=== PATIENT | male | born 1940 | race Caucasian/White ===

== ENCOUNTER 2017-03-18 09:41 | Emergency (ER) | payer MEDICARE, BC ==
--- NOTE | 2017-03-18 10:38 | CR ---
Chest 1V Frontal HISTORY: sob COMPARISON: 01/11/2013 FINDINGS: The patient is mildly rotated to the right. Lungs appear clear and normally aerated. Cardiomediastina l silhouette is within normal limits. Atherosclerotic aorta is redemonstrated. No vascular redistribu tion or pleural fluid can be seen. Mild degenerative changes can be seen along the thoracic spine. IMPRESSION: No acute chest abnormality or significant interval change compared with 01/11/2013.
[2017-03-18] MEDS ORDERED: Nitroglycerin 0.4 MG Tab.SL SL ONE (10:49)
[2017-03-18] MEDS ORDERED: Aspirin 81 MG Tab.Chew PO ONE (10:49)
[2017-03-18] MEDS ORDERED: Sodium Chloride 0.9% 10 ML Syringe FLUSH PRN (11:29)
--- NOTE | 2017-03-18 11:35 | EDM.PDOC ---
ED HPI GENERAL MEDICAL PROBLEM - General Chief Complaint: Chest Pain Stated Complaint: CHEST PAIN/SHORTNESS OF BREATH Time Seen by Provider: 03/18/17 10:00 Source of Information: Reports: Patient History Limitations: Reports: No Limitations - History of Present Illness INITIAL COMMENTS - FREE TEXT/NARRATIVE: Pt had a stress test yesterday and he was told he had chnges on the stress test. He now feels like he has chest pressure and he is definitley more sob. He states he has not had any sharp pain. He is a nonsmoker and he notes more sob with going up and down the hill to the anand. Onset: Today, Other (pt has noted more symptoms since the stress test. ) Duration: Hour(s):, Other (pt had the stress test yesterday and he has chest pressure present today. ) Location: Reports: Chest Quality: Reports: Pressure Associated Symptoms: Reports: Chest Pain, Shortness of Breath CHEST HEAVINESS Pain Score (Numeric/FACES): 1 - Related Data Allergies Allergy/AdvReac Type Severity Reaction Status Date / Time No Known Allergies Allergy Verified 03/18/17 09:48 Home Meds: Home Meds Astaxanthin 4 mg PO DAILY 09/20/13 [History] Lactobacillus Combination No.4 [Probiotic] 1 each PO DAILY 09/20/13 [History] O'Brien-3 Fatty Acids [O'Brien-3] 1,000 mg PO DAILY 09/20/13 [History] Terazosin [Hytrin] 10 mg PO BEDTIME 09/20/13 [History] Ascorbic Acid/Cod Liver Oil [Cod Liver Oil] 350 mg PO DAILY 03/16/17 [History] Bilberry 1 cap PO DAILY 03/16/17 [History] Boswellia Dione Extract 300 mg PO DAILY 03/16/17 [History] Cholecalciferol (Vitamin D3) [Vitamin D3] 1 tab PO DAILY 03/16/17 [History] Cyanocobalamin (Vitamin B-12) [Vitamin B-12] 7,000 mcg SL DAILY 03/16/17 [ History] Multivitamin [Multivitamins] 1 cap PO DAILY 03/16/17 [History] Turmeric Root Extract [Turmeric] 300 mg PO DAILY 03/16/17 [History] Ubidecarenone [Co Q-10] 100 mg PO DAILY 03/16/17 [History] Vitamin B Complex [B Complex] 1 tab PO DAILY 03/16/17 [History] Vitamin E 400 units PO DAILY 03/16/17 [History] Past Medical History Cardiovascular History: Reports: Afib, Heart Murmur, Other (See Below) Other Cardiovascular History: history of rheumatic fever Gastrointestinal History: Reports: GERD Genitourinary History: Reports: Prostate Disorder - Infectious Disease History Infectious Disease History: Reports: Chicken Pox, Measles, Mumps, Rheumatic Fever - Past Surgical History Cardiovascular Surgical History: Reports: Cardiac Ablation GI Surgical History: Reports: Appendectomy, Hernia, Abdominal Social & Family History - Tobacco Use Smoking Status *Q: Never Smoker Years of Tobacco use: 20 Used Tobacco, but Quit: Yes Month Tobacco Last Used: one year ago Second Hand Smoke Exposure: No - Alcohol Use Days Per Week of Alcohol Use: 0 - Recreational Drug Use Recreational Drug Use: No ED ROS GENERAL - Review of Systems Review Of Systems: See Below Constitutional: Reports: No Symptoms HEENT: Reports: No Symptoms Respiratory: Reports: Shortness of Breath, Other (pt is having chest pressure and sob. he has a abnormal cardiolyte stress test. ) Cardiovascular: Reports: No Symptoms Endocrine: Reports: No Symptoms GI/Abdominal: Reports: No Symptoms : Reports: No Symptoms Musculoskeletal: Reports: No Symptoms Skin: Reports: No Symptoms ED EXAM, GENERAL - Physical Exam Exam: See Below Free Text/Narrative:: pt arrived with sob and chest pressure. He hd a stress test yesterday which showed a large inferior defect that was reversible, Exam Limited By: No Limitations General Appearance: Alert, Anxious, Mild Distress Ears: Normal TMs Nose: Normal Inspection Throat/Mouth: Normal Inspection Head: Atraumatic Neck: Normal Inspection Respiratory/Chest: No Respiratory Distress, Decreased Breath Sounds Cardiovascular: Regular Rate, Rhythm GI/Abdominal: Soft, Non-Tender (Male) Exam: Deferred Rectal (Males) Exam: Deferred Back Exam: Normal Inspection Extremities: Normal Inspection Neurological: Alert, Oriented, Normal Cognition Psychiatric: Normal Affect, Anxious Course - Vital Signs Last Recorded V/S: Last Vital Signs Temp 35.7 C 03/18/17 09:58 Pulse 63 03/18/17 09:58 Resp 12 03/18/17 11:33 BP 115/71 03/18/17 11:33 Pulse Ox 97 03/18/17 11:33 - Orders/Labs/Meds Orders: Active Orders 24 hr Category Date Time Status EKG Documentation Completion [RC] ASDIRECTED Care 03/18/17 10:09 Active Sodium Chloride 0.9% [Saline Flush] Med 03/18/17 11:29 Active 10 ml FLUSH ASDIRECTED PRN Saline Lock Insert [OM.PC] Routine Oth 03/18/17 11:29 Ordered EKG 12 Lead [EK] Routine Ther 03/18/17 10:09 Ordered Medication Orders Sodium Chloride (Saline Flush) 10 ml FLUSH ASDIRECTED PRN PRN Reason: Keep Vein Open Labs: Laboratory Tests 03/18/17 03/18/17 03/18/17 Range/Units 10:17 10:17 10:17 WBC 3.3 L (4.5-11.0) K/uL RBC 3.81 L (4.30-5.90) M/uL Hgb 12.4 (12.0-15.0) g/dL Hct 37.9 L (40.0-54.0) % MCV 100 H (80-98) fL MCH 33 H (27-31) pg MCHC 33 (32-36) % Plt Count 97 L (150-400) K/uL Neut % (Auto) 49 (36-66) % Lymph % (Auto) 34 (24-44) % Dundy % (Auto) 16 H (2-6) % Eos % (Auto) 1 L (2-4) % Baso % (Auto) 0 (0-1) % Sodium 140 (140-148) mmol/L Potassium 4.3 (3.6-5.2) mmol/L Chloride 105 (100-108) mmol/L Carbon Dioxide 28 (21-32) mmol/L Anion Gap 7.2 (5.0-14.0) mmol/L BUN 12 (7-18) mg/dL Creatinine 0.6 L (0.8-1.3) mg/dL Est Cr Clr Drug Dosing 111.53 mL/min Estimated GFR (MDRD) > 60 (>60) Glucose 98 (74-106) mg/dL Calcium 8.6 (8.5-10.1) mg/dL Total Bilirubin 1.0 (0.2-1.0) mg/dL AST 14 L (15-37) U/L ALT 22 (12-78) U/L Alkaline Phosphatase 117 H (46-116) U/L Troponin I < 0.017 (0.000-0.056) ng/mL NT-Pro-B Natriuret Pep 170 H (5-125) pg/mL Total Protein 6.9 (6.4-8.2) g/dL Albumin 3.6 (3.4-5.0) g/dL Globulin 3.3 (2.3-3.5) g/dL Albumin/Globulin Ratio 1.1 L (1.2-2.2) Meds: Medications Generic Name Dose Route Start Last Admin Trade Name Freq PRN Reason Stop Dose Admin Sodium Chloride 10 ml 03/18/17 11:29 Saline Flush FLUSH ASDIRECTED PRN Keep Vein Open Discontinued Medications Generic Name Dose Route Start Last Admin Trade Name Freq PRN Reason Stop Dose Admin Aspirin 324 mg 03/18/17 10:49 03/18/17 11:18 Aspirin PO 03/18/17 10:50 324 mg ONETIME ONE Administration Nitroglycerin 0.4 mg 03/18/17 10:49 03/18/17 11:31 Nitrostat SL 03/18/17 10:50 0.4 mg ONETIME ONE Administration - Re-Assessments/Exams Free Text/Narrative Re-Assessment/Exam: 03/18/17 11:41 pt had a abnormal cardiolyte yesterday with a large reversible defect in the inferior portion of his heart. He had a normal trop. His ekg did not show acute changes. cardiology was consulted in [place] and he agreed that he should have a cardiac cath sooner rather than later. Departure - Departure Time of Disposition: 11:44 Disposition: DC/Tfer to Acute Hospital 02 Reason for Transfer *Q: Primary PCI Indicated Condition: Fair Clinical Impression: Unstable angina Referrals: Vernon Jenkins PA-C [Primary Care Provider] - Forms: ED Department Discharge Care Plan Goals: transfer to [place] cardiology. - My Orders Last 24 Hours: My Active Orders 03/18/17 10:09 EKG Documentation Completion [RC] ASDIRECTED EKG 12 Lead [EK] Routine 03/18/17 11:29 Sodium Chloride 0.9% [Saline Flush] 10 ml FLUSH ASDIRECTED PRN Saline Lock Insert [OM.PC] Routine - Assessment/Plan Last 24 Hours: My Active Orders 03/18/17 10:09 EKG Documentation Completion [RC] ASDIRECTED EKG 12 Lead [EK] Routine 03/18/17 11:29 Sodium Chloride 0.9% [Saline Flush] 10 ml FLUSH ASDIRECTED PRN Saline Lock Insert [OM.PC] Routine
[2017-03-18] MEDS ORDERED: Sodium Chloride 0.9% 1,000 ML IV SCH (11:45)
[2017-03-18 11:55] VITALS: BP 112/71
== END 2017-03-18 12:14 ==
LOC: JP.ED 09:41
DX: I20.0 Unstable angina (principal); I48.91 Unspecified atrial fibrillation; Z79.899 Other long term (current) drug therapy; R06.02 Shortness of breath
CPT/HCPCS: 36415; 71010; 80053; 83880; 84484; 85025; 93005; 93010; 99285; A9270

== ENCOUNTER 2017-11-25 06:49 | Day surgery (SDC) | payer MEDICARE, BC ==
[~2017-11-25 06:49] MED LIST: Lactated Ringers 1,000 ML IV SCH
[2017-11-25] MEDS ORDERED: Lactated Ringers 1,000 ML IV SCH (07:30)
[2017-11-25] MEDS ORDERED: fentaNYL 100 MCG/2 ML SDV ONE (08:42)
[2017-11-25] MEDS ORDERED: Propofol 200 MG/20 ML SDV ONE ×2 (08:45→09:12)
[2017-11-25 10:49] VITALS: BP 124/73
--- NOTE | 2017-11-25 12:56 | OR ---
DATE OF PROCEDURE: 11/25/2017 PREOPERATIVE DIAGNOSIS: Diarrhea. POSTOPERATIVE DIAGNOSIS: Diarrhea. PROCEDURES: Colonoscopy to the cecum with random colon biopsies. SURGEON: Jerry Samayoa MD. ANESTHESIA: IV anesthesia with monitored anesthesia care. INDICATION: This 77-year-old white male is referred for a colonoscopy because of diarrhea. He says his last colonoscopic exam was done 5 years ago. I counseled him for the procedure, including risks and alternatives, and he gave his informed consent to proceed. DESCRIPTION OF PROCEDURE: The patient was placed in the left lateral decubitus position. IV anesthesia was administered by the Anesthesia Service. Time-out was held. A rectal exam was performed, which was unremarkable. The flexible video Olympus colonoscope was introduced through his anus, up his rectum, and out his colon all the way to the cecum. To accomplish this, we had to apply abdominal compression with the patient in both the left lateral and supine positions. The scope was then slowly withdrawn, examining the mucosa throughout. No mucosal abnormalities were noted. We did obtain random colonic biopsies throughout the entire colon. The scope was retroflexed in the rectum with the distal rectum appearing unremarkable. The scope was straightened and removed. He tolerated the procedure well. Jerry Samayoa MD /[id number] MTDD
== END 2017-11-25 10:30 | disposition home or self-care (01) ==
LOC: JP.SDS 06:49
PROVIDERS: ATTEND Surgery
DX: R19.7 Diarrhea, unspecified (principal); I25.10 Atherosclerotic heart disease of native coronary artery without angina pectoris; G47.33 Obstructive sleep apnea (adult) (pediatric)
CPT/HCPCS: 45380; J2704; J3010; J7120; 88305

== ENCOUNTER 2019-11-01 09:54 | Observation (INO) | payer MEDICARE, BC ==
--- NOTE | 2019-11-01 10:47 | EDM.PDOC ---
ED HPI GENERAL MEDICAL PROBLEM - General Chief Complaint: General Stated Complaint: JAUNDICED Time Seen by Provider: 11/01/19 10:34 Source of Information: Reports: Patient, RN Notes Reviewed History Limitations: Reports: No Limitations - History of Present Illness INITIAL COMMENTS - FREE TEXT/NARRATIVE: 79-year-old gentleman presents emergency department today complaint of shortness of breath on exertion, he states been ongoing for about 2 weeks he has had some troubles before but it was more of a nuisance but however over the last 2 weeks it has been significant to the point where he cannot walk up a flight of stairs without having to stop and rest and catch his breath. His family was concerned that he looks jaundiced he does have a cardiac history with stenting 2 years ago. No chest pain no fevers no nausea or vomiting he does admit to black tarry stools over the last 3 weeks - Related Data Allergies Allergy/AdvReac Type Severity Reaction Status Date / Time No Known Allergies Allergy Verified 11/01/19 10:16 Home Meds: Home Meds Astaxanthin 4 mg PO DAILY 09/20/13 [History] Lactobacillus Combination No.4 [Probiotic] 1 each PO DAILY 09/20/13 [History] [place]field-3 Fatty Acids [[place]akefield-3] 1,000 mg PO DAILY 09/20/13 [History] Boswellia Dione Extract 300 mg PO DAILY 03/16/17 [History] Cholecalciferol (Vitamin D3) [Vitamin D3] 1 tab PO DAILY 03/16/17 [History] Cyanocobalamin (Vitamin B-12) [Vitamin B-12] 7,000 mcg SL DAILY 03/16/17 [ History] Multivitamin [Multivitamins] 1 cap PO DAILY 03/16/17 [History] Ubidecarenone [Co Q-10] 100 mg PO DAILY 03/16/17 [History] Vitamin B Complex [B Complex] 1 tab PO DAILY 03/16/17 [History] Vitamin E 400 units PO DAILY 03/16/17 [History] Aspirin [Adult Low Dose Aspirin EC] 81 mg PO DAILY 10/14/17 [History] Clopidogrel [Plavix] 75 mg PO DAILY 10/14/17 [History] Eclectic Aspartate [Lithate] 5 mg PO DAILY 10/14/17 [History] Tamsulosin HCl [Flomax] 0.4 mg PO DAILY 10/14/17 [History] Acetylcarnitine [Acetyl l-Carnitine] 500 mg PO DAILY 11/24/17 [History] Arginine 500 mg PO DAILY 11/24/17 [History] Ashwagandha 1,000 mg PO DAILY 11/24/17 [History] Berberine Complex Or 150 mg PO DAILY 11/24/17 [History] Iodine [Kelp] 225 mg PO DAILY 11/24/17 [History] Lysine HCl [l-Lysine] 500 mg PO DAILY 11/24/17 [History] Magnesium 125 mg PO DAILY 11/24/17 [History] [place] Boronda Extract 500 mg PO DAILY 11/24/17 [History] Acetylcysteine [Cetylev] 1 tab PO DAILY 05/11/18 [History] Cod Liver Oil 350 mg PO DAILY 05/11/18 [History] Inositol/Choline/Biofla/Vitb,C [Ear Health Plus Caplet] 250 mg PO DAILY [History] Lutein/Zeaxanthin [Lutein-Zeaxanthin 20-1 mg Sfgl] 1 each PO DAILY 05/11/18 [ History] Resveratrol 1 cap PO DAILY 05/11/18 [History] Tragacanth 1 dose PO DAILY 05/11/18 [History] Milk Thistle 500 mg PO DAILY 05/17/18 [History] Ferrous Sulfate [Iron] 325 mg PO DAILY 11/01/19 [History] Past Medical History HEENT History: Reports: Cataract, Hard of Hearing, Impaired Vision Cardiovascular History: Reports: Afib, Heart Murmur, Stents, Other (See Below) Other Cardiovascular History: history of rheumatic fever Respiratory History: Reports: Sleep Apnea Gastrointestinal History: Reports: GERD Genitourinary History: Reports: Prostate Disorder Musculoskeletal History: Reports: Fracture Endocrine/Metabolic History: Reports: Hypothyroidism Hematologic History: Reports: Anticoagulation Therapy - Infectious Disease History Infectious Disease History: Reports: Chicken Pox, Measles, Mumps - Past Surgical History HEENT Surgical History: Reports: None Cardiovascular Surgical History: Reports: Cardiac Ablation, Coronary Artery Stent Respiratory Surgical History: Reports: None GI Surgical History: Reports: Appendectomy, Colonoscopy, EGD, Hernia, Abdominal Male Surgical History: Reports: Prostate Biopsy Endocrine Surgical History: Reports: None Musculoskeletal Surgical History: Reports: None Social & Family History - Caffeine Use Caffeine Use: Reports: None ED ROS GENERAL - Review of Systems Review Of Systems: See Below Constitutional: Reports: No Symptoms HEENT: Reports: No Symptoms Respiratory: Reports: Shortness of Breath. Denies: Wheezing, Cough, Sputum Cardiovascular: Reports: Dyspnea on Exertion. Denies: Chest Pain, Edema GI/Abdominal: Reports: Black Stool : Reports: No Symptoms Musculoskeletal: Reports: No Symptoms Skin: Reports: No Symptoms ED EXAM, GENERAL - Physical Exam Exam: See Below Exam Limited By: No Limitations General Appearance: Alert, WD/WN, No Apparent Distress Respiratory/Chest: No Respiratory Distress, Lungs Clear, Normal Breath Sounds, No Accessory Muscle Use, Chest Non-Tender Cardiovascular: Regular Rate, Rhythm, No Murmur GI/Abdominal: Soft, Non-Tender Extremities: Normal Inspection, No Pedal Edema Course - Vital Signs Last Recorded V/S: Last Vital Signs Temp 97.1 F 11/01/19 10:24 Pulse 63 11/01/19 11:28 Resp 20 11/01/19 11:28 BP 114/44 L 11/01/19 11:28 Pulse Ox 97 11/01/19 11:28 - Orders/Labs/Meds Orders: Active Orders 24 hr Category Date Time Status Cardiac Monitoring [RC] .As Directed Care 11/01/19 10:41 Active EKG Documentation Completion [RC] ASDIRECTED Care 11/01/19 10:42 Active FERRITIN [CHEM] Routine Lab 11/01/19 11:33 Ordered RED BLOOD CELLS LP [BBK] Stat Lab 11/01/19 11:01 Ordered TYPE AND SCREEN [BBK] Stat Lab 11/01/19 11:01 Ordered VITAMIN B12 [CHEM] Routine Lab 11/01/19 11:33 Ordered EKG 12 Lead [EK] Stat Ther 11/01/19 10:41 Ordered Labs: Laboratory Tests 11/01/19 11/01/19 11/01/19 Range/Units 10:53 10:53 10:53 WBC 5.1 (4.5-11.0) K/uL RBC 1.82 L (4.30-5.90) M/uL Hgb 5.5 L* D (12.0-15.0) g/dL Hct 19.7 L (40.0-54.0) % MCV 108 H (80-98) fL MCH 30 (27-31) pg MCHC 28 L (32-36) % Plt Count 155 (150-400) K/uL Add Manual Diff Yes Neutrophils % (Manual) 67 H (36-66) % Lymphocytes % (Manual) 14 L (24-44) % Monocytes % (Manual) 18 H (2-6) % Eosinophils % (Manual) 1 L (2-4) % Hypochromasia Marked H Poikilocytosis Marked H Anisocytosis Marked H Stomatocytes Marked H Sodium 138 L (140-148) mmol/L Potassium 4.3 (3.6-5.2) mmol/L Chloride 105 (100-108) mmol/L Carbon Dioxide 26 (21-32) mmol/L Anion Gap 11.3 (5.0-14.0) mmol/L BUN 20 H D (7-18) mg/dL Creatinine 0.8 (0.8-1.3) mg/dL Est Cr Clr Drug Dosing 79.87 mL/min Estimated GFR (MDRD) > 60 (>60) Glucose 105 (74-106) mg/dL Lactic Acid 2.4 H (0.4-2.0) mmol/L Calcium 7.8 L (8.5-10.1) mg/dL Iron (65-175) ug/dL TIBC (250-450) ug/dl % Saturation (20-55) % Total Bilirubin 0.5 (0.2-1.0) mg/dL AST 16 (15-37) U/L ALT 24 (12-78) U/L Alkaline Phosphatase 95 (46-116) U/L Troponin I < 0.017 (0.000-0.056) ng/mL NT-Pro-B Natriuret Pep 327 (5-450) pg/mL Total Protein 5.0 L (6.4-8.2) g/dL Albumin 2.7 L (3.4-5.0) g/dL Globulin 2.3 (2.3-3.5) g/dL Albumin/Globulin Ratio 1.2 (1.2-2.2) 11/01/19 Range/Units 11:33 WBC (4.5-11.0) K/uL RBC (4.30-5.90) M/uL Hgb (12.0-15.0) g/dL Hct (40.0-54.0) % MCV (80-98) fL MCH (27-31) pg MCHC (32-36) % Plt Count (150-400) K/uL Add Manual Diff Neutrophils % (Manual) (36-66) % Lymphocytes % (Manual) (24-44) % Monocytes % (Manual) (2-6) % Eosinophils % (Manual) (2-4) % Hypochromasia Poikilocytosis Anisocytosis Stomatocytes Sodium (140-148) mmol/L Potassium (3.6-5.2) mmol/L Chloride (100-108) mmol/L Carbon Dioxide (21-32) mmol/L Anion Gap (5.0-14.0) mmol/L BUN (7-18) mg/dL Creatinine (0.8-1.3) mg/dL Est Cr Clr Drug Dosing mL/min Estimated GFR (MDRD) (>60) Glucose (74-106) mg/dL Lactic Acid (0.4-2.0) mmol/L Calcium (8.5-10.1) mg/dL Iron 124 (65-175) ug/dL TIBC 321 (250-450) ug/dl % Saturation 39 (20-55) % Total Bilirubin (0.2-1.0) mg/dL AST (15-37) U/L ALT (12-78) U/L Alkaline Phosphatase (46-116) U/L Troponin I (0.000-0.056) ng/mL NT-Pro-B Natriuret Pep (5-450) pg/mL Total Protein (6.4-8.2) g/dL Albumin (3.4-5.0) g/dL Globulin (2.3-3.5) g/dL Albumin/Globulin Ratio (1.2-2.2) Departure - Departure Time of Disposition: 12:09 Disposition: Admitted As Inpatient 68 Condition: Fair Clinical Impression: Anemia, macrocytic - Discharge Information Referrals: PCP,None [Primary Care Provider] - Forms: ED Department Discharge Sepsis Event Note - Evaluation Sepsis Screening Result: No Definite Risk - Focused Exam Vital Signs: Vital Signs Temp Pulse Resp BP Pulse Ox 11/01/19 11:28 63 20 114/44 L 97 11/01/19 10:24 97.1 F 64 14 123/52 L 100 Date Exam was Performed: 11/01/19 Time Exam was Performed: 12:08 - My Orders Last 24 Hours: My Active Orders 11/01/19 10:41 Cardiac Monitoring [RC] .As Directed EKG 12 Lead [EK] Stat 11/01/19 10:42 EKG Documentation Completion [RC] ASDIRECTED 11/01/19 11:01 RED BLOOD CELLS LP [BBK] Stat TYPE AND SCREEN [BBK] Stat - Assessment/Plan Last 24 Hours: My Active Orders 11/01/19 10:41 Cardiac Monitoring [RC] .As Directed EKG 12 Lead [EK] Stat 11/01/19 10:42 EKG Documentation Completion [RC] ASDIRECTED 11/01/19 11:01 RED BLOOD CELLS LP [BBK] Stat TYPE AND SCREEN [BBK] Stat Plan: Assessment Acuity = acute Site and laterality = severe anemia Etiology = unknown Manifestations = dyspnea on exertion Location of injury = Home Lab values = hemoglobin low at 5.5 consistent macrocytic anemia lactic acid normal at 2.4 troponins negative BNP normal at 327 albumin low 2.7 consistent with microalbuminemia chest x-ray shows mild cardiomegaly EKG demonstrates a right bundle branch block no elevations of the ST segments Plan Call discussed case with hospitalist on-call at 1130 currently agreed to come and evaluate the patient in the hospital for admission 2 units of packed red blood cells have been ordered This note was dictated using [employer] voice recognition software please call with any questions on syntax or grammar.
--- NOTE | 2019-11-01 11:11 | CR ---
CHEST: 2 view CLINICAL HISTORY:SOB COMPARISON:2017 FINDINGS: Heart is mildly enlarged. Pulmonary vascular is normal. Lungs are moderately emphysematous. There is some scarring in the right lung base posteriorly which is similar to prior study. There are atherosclerotic changes in the aorta. IMPRESSION: Moderate emphysematous changes Mild cardiomegaly Scarring at the right lung base.
[2019-11-01] MEDS ORDERED: Pantoprazole 40 MG Vial IVPUSH ONE (12:57)
--- NOTE | 2019-11-01 13:09 | PCM.HP.2 ---
H&P History of Present Illness - General Date of Service: 11/01/19 Admit Problem/Dx: Admission Diagnosis/Problem Admission Diagnosis/Problem Anemia due to blood loss Source of Information: Patient, Provider History Limitations: Reports: No Limitations - History of Present Illness Initial Comments - Free Text/Narative: CC: I get so winded HPI: James presents to the emergency room today because his family was worried about the color of his skin. They thought that he looked pale. He reports that he has had about 2 to 3 weeks of progressive dyspnea with exertion and even some presyncope. He has not had any chest pain. He does not have a cough or fever. Climbing a flight of stairs causes him to have to stop and catch his breath. He describes some orthostatic type hypotension and gets lightheaded after he leans over or when he stands up. He does note that he had black tarry stools off and on for the past 3 weeks. He has not had any abdominal pain or nausea. His weight has been stable. No change in bladder habits. No skin rashes or sick contacts. No new medications. He does report lifelong difficulty with heartburn which has been more intense lately. He is under a great deal of stress trying to sell a house. Work-up in the emergency room revealed a hemoglobin of 5.5. Laboratory studies are otherwise unremarkable. He will be admitted for expedited work-up and management of anemia thought secondary to blood loss from an upper GI bleed. - Related Data Allergies/Adverse Reactions: Allergies Allergy/AdvReac Type Severity Reaction Status Date / Time No Known Allergies Allergy Verified 11/01/19 14:25 Home Medications: Home Meds Astaxanthin 4 mg PO DAILY 09/20/13 [History] Lactobacillus Combination No.4 [Probiotic] 1 each PO DAILY 09/20/13 [History] [place]-3 Fatty Acids [Weir-3] 1,000 mg PO DAILY 09/20/13 [History] [place]well[place] Dione Extract 300 mg PO DAILY 03/16/17 [History] Cholecalciferol (Vitamin D3) [Vitamin D3] 1 tab PO DAILY 03/16/17 [History] Cyanocobalamin (Vitamin B-12) [Vitamin B-12] 7,000 mcg SL DAILY 03/16/17 [ History] Multivitamin [Multivitamins] 1 cap PO DAILY 03/16/17 [History] Ubidecarenone [Co Q-10] 100 mg PO DAILY 03/16/17 [History] Vitamin B Complex [B Complex] 1 tab PO DAILY 03/16/17 [History] Vitamin E 400 units PO DAILY 03/16/17 [History] Aspirin [Adult Low Dose Aspirin EC] 81 mg PO DAILY 10/14/17 [History] Clopidogrel [Plavix] 75 mg PO DAILY 10/14/17 [History] [place] Aspartate [Lithate] 5 mg PO DAILY 10/14/17 [History] Tamsulosin HCl [Flomax] 0.4 mg PO DAILY 10/14/17 [History] Acetylcarnitine [Acetyl l-Carnitine] 500 mg PO DAILY 11/24/17 [History] Arginine 500 mg PO DAILY 11/24/17 [History] Ashwagandha 1,000 mg PO DAILY 11/24/17 [History] Berberine Complex Or 150 mg PO DAILY 11/24/17 [History] Iodine [Kelp] 225 mg PO DAILY 11/24/17 [History] Lysine HCl [l-Lysine] 500 mg PO DAILY 11/24/17 [History] Magnesium 125 mg PO DAILY 11/24/17 [History] [place] Extract 500 mg PO DAILY 11/24/17 [History] Acetylcysteine [Cetylev] 1 tab PO DAILY 05/11/18 [History] Cod Liver Oil 350 mg PO DAILY 05/11/18 [History] Inositol/Choline/Biofla/Vitb,C [Ear Health Plus Caplet] 250 mg PO DAILY [History] Lutein/Zeaxanthin [Lutein-Zeaxanthin 20-1 mg Sfgl] 1 each PO DAILY 05/11/18 [ History] Resveratrol 1 cap PO DAILY 05/11/18 [History] Tragacanth 1 dose PO DAILY 05/11/18 [History] Milk Thistle 500 mg PO DAILY 05/17/18 [History] Ferrous Sulfate [Iron] 325 mg PO DAILY 11/01/19 [History] Past Medical History HEENT History: Reports: Cataract, Hard of Hearing, Impaired Vision Cardiovascular History: Reports: Afib, Heart Murmur, Stents, Other (See Below) Other Cardiovascular History: history of rheumatic fever Respiratory History: Reports: Sleep Apnea Gastrointestinal History: Reports: GERD Genitourinary History: Reports: Prostate Disorder Musculoskeletal History: Reports: Fracture Endocrine/Metabolic History: Reports: Hypothyroidism Hematologic History: Reports: Anticoagulation Therapy - Infectious Disease History Infectious Disease History: Reports: Chicken Pox, Measles, Mumps - Past Surgical History HEENT Surgical History: Reports: None Cardiovascular Surgical History: Reports: Cardiac Ablation, Coronary Artery Stent Respiratory Surgical History: Reports: None GI Surgical History: Reports: Appendectomy, Colonoscopy, EGD, Hernia, Abdominal Male Surgical History: Reports: Prostate Biopsy Endocrine Surgical History: Reports: None Musculoskeletal Surgical History: Reports: None Social & Family History - Family History GI: Reports: GERD. Denies: GI bleed - Tobacco Use Smoking Status *Q: Never Smoker - Caffeine Use Caffeine Use: Reports: None - Alcohol Use Alcohol Use History: No - Recreational Drug Use Recreational Drug Use: No Drug Use in Last 12 Months: No H&P Review of Systems - Review of Systems: Review Of Systems: See Below Free Text/Narrative: A complete 12 point review of systems was obtained. Pertinent positives and negatives are noted in the history of present illness. All other systems were reviewed and were negative except as noted. Exam - Exam Exam: See Below - Vital Signs Vital Signs: Last Vital Signs Temp 36.2 C 11/01/19 10:24 Pulse 63 11/01/19 11:28 Resp 20 11/01/19 11:28 BP 114/44 L 11/01/19 11:28 Pulse Ox 97 11/01/19 11:28 Weight: 73.028 kg - Exam Quality Assessment: No: Supplemental Oxygen General: Alert, Oriented, Cooperative. No: Mild Distress HEENT: Conjunctiva Clear, Mucosa Moist & Herricks. No: Scleral Icterus Neck: Supple, Trachea Midline. No: Lymphadenopathy Lungs: Clear to Auscultation, Normal Respiratory Effort Cardiovascular: Regular Rate, Regular Rhythm GI/Abdominal Exam: Normal Bowel Sounds, Soft, Non-Tender, No Distention Back Exam: Normal Inspection, Full Range of Motion Extremities: No Pedal Edema. No: Increased Warmth Peripheral Pulses: 2+: Dorsalis Pedis (L), Dorsalis Pedis (R) Skin: Warm, Dry Neuro Extensive - Mental Status: Alert, Oriented x3, Nl Response to Commands Neuro Extensive - Motor, Sensory, Reflexes: No: Dysarthria, Abnormal Motor, Tremor Psychiatric: Alert, Normal Affect - Patient Data Lab Results Last 24 hrs: Laboratory Results - last 24 hr 11/01/19 11/01/19 11/01/19 Range/Units 10:53 10:53 10:53 WBC 5.1 (4.5-11.0) K/uL RBC 1.82 L (4.30-5.90) M/uL Hgb 5.5 L* D (12.0-15.0) g/dL Hct 19.7 L (40.0-54.0) % MCV 108 H (80-98) fL MCH 30 (27-31) pg MCHC 28 L (32-36) % Plt Count 155 (150-400) K/uL Add Manual Diff Yes Neutrophils % (Manual) 67 H (36-66) % Lymphocytes % (Manual) 14 L (24-44) % Monocytes % (Manual) 18 H (2-6) % Eosinophils % (Manual) 1 L (2-4) % Hypochromasia Marked H Poikilocytosis Marked H Anisocytosis Marked H Stomatocytes Marked H Sodium 138 L (140-148) mmol/L Potassium 4.3 (3.6-5.2) mmol/L Chloride 105 (100-108) mmol/L Carbon Dioxide 26 (21-32) mmol/L Anion Gap 11.3 (5.0-14.0) mmol/L BUN 20 H D (7-18) mg/dL Creatinine 0.8 (0.8-1.3) mg/dL Est Cr Clr Drug Dosing 79.87 mL/min Estimated GFR (MDRD) > 60 (>60) Glucose 105 (74-106) mg/dL Lactic Acid 2.4 H (0.4-2.0) mmol/L Calcium 7.8 L (8.5-10.1) mg/dL Iron (65-175) ug/dL TIBC (250-450) ug/dl % Saturation (20-55) % Ferritin (8-388) ng/ml Total Bilirubin 0.5 (0.2-1.0) mg/dL AST 16 (15-37) U/L ALT 24 (12-78) U/L Alkaline Phosphatase 95 (46-116) U/L Troponin I < 0.017 (0.000-0.056) ng/mL NT-Pro-B Natriuret Pep 327 (5-450) pg/mL Total Protein 5.0 L (6.4-8.2) g/dL Albumin 2.7 L (3.4-5.0) g/dL Globulin 2.3 (2.3-3.5) g/dL Albumin/Globulin Ratio 1.2 (1.2-2.2) Vitamin B12 (193-986) pg/ml Blood Type Gel Antibody Screen Crossmatch 11/01/19 11/01/19 11/01/19 Range/Units 11:01 11:33 11:33 WBC (4.5-11.0) K/uL RBC (4.30-5.90) M/uL Hgb (12.0-15.0) g/dL Hct (40.0-54.0) % MCV (80-98) fL MCH (27-31) pg MCHC (32-36) % Plt Count (150-400) K/uL Add Manual Diff Neutrophils % (Manual) (36-66) % Lymphocytes % (Manual) (24-44) % Monocytes % (Manual) (2-6) % Eosinophils % (Manual) (2-4) % Hypochromasia Poikilocytosis Anisocytosis Stomatocytes Sodium (140-148) mmol/L Potassium (3.6-5.2) mmol/L Chloride (100-108) mmol/L Carbon Dioxide (21-32) mmol/L Anion Gap (5.0-14.0) mmol/L BUN (7-18) mg/dL Creatinine (0.8-1.3) mg/dL Est Cr Clr Drug Dosing mL/min Estimated GFR (MDRD) (>60) Glucose (74-106) mg/dL Lactic Acid (0.4-2.0) mmol/L Calcium (8.5-10.1) mg/dL Iron 124 (65-175) ug/dL TIBC 321 (250-450) ug/dl % Saturation 39 (20-55) % Ferritin 28 (8-388) ng/ml Total Bilirubin (0.2-1.0) mg/dL AST (15-37) U/L ALT (12-78) U/L Alkaline Phosphatase (46-116) U/L Troponin I (0.000-0.056) ng/mL NT-Pro-B Natriuret Pep (5-450) pg/mL Total Protein (6.4-8.2) g/dL Albumin (3.4-5.0) g/dL Globulin (2.3-3.5) g/dL Albumin/Globulin Ratio (1.2-2.2) Vitamin B12 1453 H (193-986) pg/ml Blood Type B POSITIVE Gel Antibody Screen Negative Crossmatch See Detail Result Diagrams: 11/01/19 10:53 11/01/19 10:53 EKG INTERPRETATION EKG Date: 11/01/19 Rhythm: NSR Rate (Beats/Min): 77 Beatrice: RAD-Right Beatrice Deviation (RBBB) P-Wave: Present QRS: Normal ST-T: Normal QT: Normal EKG Interpretation Comments: This EKG image was personally reviewed today in the emergency room Sepsis Event Note - Evaluation Sepsis Screening Result: No Definite Risk - Focused Exam Vital Signs: Vital Signs Temp Pulse Resp BP Pulse Ox 11/01/19 11:28 63 20 114/44 L 97 11/01/19 10:24 36.2 C 64 14 123/52 L 100 Date Exam was Performed: 11/01/19 Time Exam was Performed: 15:13 *Q Meaningful Use (ADM) - VTE *Q VTE Pharmacological Contraindications *Q: Risk of Bleeding (suspect upper gi bleed) - VTE Risk Assess *Q Each Risk Factor Represents 1 Point: None Total Score 1 Point Risk Factors: 0 Each Risk Factor Represents 2 Points: None Total Score 2 Point Risk Factors: 0 Each Risk Factor Represents 3 Points: Age 75 Years or Greater Total Score 3 Point Risk Factors: 3 Each Risk Factor Represents 5 Points: None Total Score 5 Point Risk Factors: 0 Venous Thromboembolism Risk Factor Score *Q: 3 - Problem List (1) Upper GI hemorrhage SNOMED Code(s): 02315746 ICD Code: K92.2 - GASTROINTESTINAL HEMORRHAGE, UNSPECIFIED Status: Acute Current Visit: Yes (2) Anemia due to blood loss, acute SNOMED Code(s): 934380070 ICD Code: D62 - ACUTE POSTHEMORRHAGIC ANEMIA Status: Acute Current Visit : Yes Problem List Initiated/Reviewed/Updated: Yes Orders Last 24hrs: Active Orders 24 hr Category Date Time Status Patient Status Manage Transfer [TRANSFER] Routine ADT 11/01/19 12:58 Ordered Cardiac Monitoring [RC] .As Directed Care 11/01/19 10:41 Active EKG Documentation Completion [RC] ASDIRECTED Care 11/01/19 10:42 Active PATIENT RETYPE [BBK] Stat Lab 11/01/19 11:01 Results RED BLOOD CELLS LP [BBK] Stat Lab 11/01/19 11:01 Results TYPE AND SCREEN [BBK] Stat Lab 11/01/19 11:01 Results Resuscitation Status Routine Resus Stat 11/01/19 13:01 Ordered EKG 12 Lead [EK] Stat Ther 11/01/19 10:41 Ordered Assessment/Plan Comment:: ASSESSMENT AND PLAN - Anemia due to blood loss-suspect upper GI source. Patient does not unstable at this time. I suspect he has either gastritis or possibly ulcer disease. He is symptomatic with the anemia. He is otherwise fairly healthy. -Transfuse 2 units of packed red blood cells -IV proton pump inhibitor twice daily -Surgical consultation for endoscopy in the morning -Hemoglobin in the morning Coronary artery disease-patient had stenting done about 2 years ago. No recent difficulties with chest pain and functional status was good prior to onset of his melena. -Continue aspirin and clopidogrel Maintenance issues - - DVT prophylaxis -mechanical with active hemorrhage - GI prophylaxis -PPI as above - Nutrition -full liquids today, nothing by mouth after midnight - Sue catheter -not indicated CODE STATUS -full code Admission justification -patient will be referred to observation status for expedited work-up and management Disposition -I would anticipate discharge home after the hospital stay Primary care physician -Sidney Triplett M.D. - Mortality Measure Prognosis:: Good
[2019-11-01] MEDS ORDERED: Magnesium Hydroxide 400 MG/5 ML Susp 30 ML Cup PO PRN (13:46)
[2019-11-01] MEDS ORDERED: LORazepam 2 MG/ML SDV IVPUSH PRN (13:46)
[2019-11-01] MEDS ORDERED: Melatonin 3 MG Tab PO PRN (13:46)
[2019-11-01] MEDS ORDERED: Ondansetron 4 MG/2 ML SDV IV PRN (13:46)
[2019-11-01] MEDS ORDERED: Acetaminophen 325 MG Tab PO PRN (13:46)
[2019-11-01] MEDS ORDERED: Ondansetron 4 MG Tab.DIS PO PRN (13:46)
[2019-11-01] MEDS ORDERED: Tamsulosin 0.4 MG Cap.ER*PT OWN MED PO SCH (21:00)
[2019-11-01] MEDS: Pantoprazole 40 MG Vial IV SCH (21:36)
[2019-11-02] MEDS ORDERED: fentaNYL 100 MCG/2 ML SDV ONE (07:26)
[2019-11-02] MEDS ORDERED: Propofol 200 MG/20 ML SDV ONE (07:26)
[2019-11-02] MEDS ORDERED: Midazolam 1 MG/ML 2 ML SDV ONE (07:26)
[2019-11-02] MEDS ORDERED: Aspirin 81 MG Tab.EC PO SCH (09:00)
[2019-11-02] MEDS ORDERED: Tamsulosin 0.4 MG Cap.ER PO SCH (09:00)
[2019-11-02] MEDS ORDERED: Clopidogrel 75 MG Tab PO SCH (09:00)
[2019-11-02] MEDS: Pantoprazole 40 MG Vial IV SCH (09:53)
[2019-11-02 10:51] VITALS: BP 104/60; PULSE 67
--- NOTE | 2019-11-02 13:09 | PCM.DCSUM1 ---
Discharge Summary - Hospital Course Brief History: 79-year-old male with history of coronary artery disease requiring 1 stent who presented with weakness and dyspnea on exertion. Work-up in the emergency room revealed hemoglobin of 5.5. He was admitted for management of anemia and a suspected GI bleed. Diagnosis: Stroke: No - Discharge Data Discharge Date: 11/02/19 Discharge Disposition: Home, Self-Care 01 Condition: Good - Referral to Home Health Primary Care Physician: PCP None - Discharge Diagnosis/Problem(s) (1) Upper GI hemorrhage SNOMED Code(s): 44147121 ICD Code: K92.2 - GASTROINTESTINAL HEMORRHAGE, UNSPECIFIED Status: Acute Current Visit: Yes (2) Anemia due to blood loss, acute SNOMED Code(s): 076693113 ICD Code: D62 - ACUTE POSTHEMORRHAGIC ANEMIA Status: Acute Current Visit : Yes - Patient Summary/Data Operative Procedure(s) Performed: Upper GI endoscopy performed by Dr. Mendosa was normal Consults: Consultations 11/01/19 13:46 Consult to Physician [CONS] Routine Consulting Provider: Nolan Mendosa Call Completed to Consulting Physician: Yes Reason for Consult: suspect upper GI bleed Person Notified: RW Date Notified: 11/01/19 Special Instructions: EGD in the am Hospital Course: Bonita presented to the emergency room with weakness and dyspnea on exertion. Work-up in the emergency room revealed a hemoglobin of 5.5. He did report some recent difficulties with melena. Upper GI bleed was suspected. He was admitted to the hospital and did receive 2 units of blood via transfusion. By the morning after admission his hemoglobin is up over 7. Symptomatically he is feeling much better. We did perform an upper endoscopy which was entirely normal other than some very mild irritation of the distal esophagus because of acid reflux. No obvious source of bleeding was identified. He does have a small amount of melena remaining. He does not have any abdominal pain. Vital signs have all been stable. We did discuss the potential for colonoscopy. At this time he would like to utilize watchful waiting. If there is additional bleeding he may need a colonoscopy and even potentially capsule endoscopy if no obvious source is found. He feels well and is interested in going home. He will be following up early next week for repeat hemoglobin. If he has additional bleeding over the weekend we may need to expedite the colonoscopy. - Patient Instructions Diet: Regular Diet as Tolerated (soft and bland foods for the next week ) Activity: As Tolerated Driving: May Drive Today Showering/Bathing: May Shower Notify Provider of: Fever, Nausea and/or Vomiting Other/Special Instructions: 1. You were in the hospital for management of a gastrointestinal bleed that led to significant anemia requiring a blood transfusion. We did perform an upper endoscopy which did not reveal a source of bleeding. Potential sites of bleeding could include the small intestine which we are not able to visualize with endoscopy versus possibly the colon. At this time we are going to utilize watchful waiting. If you have additional or heavy bleeding our next up would be to perform a colonoscopy. If this does not reveal a source of bleeding capsule endoscopy could be considered. 2. Stop taking your clopidogrel to help reduce the risk of bleeding. 3. Call the hospital and asked to speak with me (Dr Triplett) if you have difficulty over the weekend. If you have difficulty starting Tuesday or later you should contact Florencio Trujillo. 4. Follow up as as scheduled next week - Discharge Plan *PRESCRIPTION DRUG MONITORING PROGRAM REVIEWED*: Not Applicable *COPY OF PRESCRIPTION DRUG MONITORING REPORT IN PATIENT SYLVIA: Not Applicable Home Medications: Home Meds Astaxanthin 4 mg PO DAILY 09/20/13 [History] Lactobacillus Combination No.4 [Probiotic] 1 each PO DAILY 09/20/13 [History] [place]-3 Fatty Acids [[place]-3] 1,000 mg PO DAILY 09/20/13 [History] Boswell[place] Dione Extract 300 mg PO DAILY 03/16/17 [History] Cholecalciferol (Vitamin D3) [Vitamin D3] 1 tab PO DAILY 03/16/17 [History] Cyanocobalamin (Vitamin B-12) [Vitamin B-12] 7,000 mcg SL DAILY 03/16/17 [ History] Multivitamin [Multivitamins] 1 cap PO DAILY 03/16/17 [History] Ubidecarenone [Co Q-10] 100 mg PO DAILY 03/16/17 [History] Vitamin B Complex [B Complex] 1 tab PO DAILY 03/16/17 [History] Vitamin E 400 units PO DAILY 03/16/17 [History] Aspirin [Adult Low Dose Aspirin EC] 81 mg PO DAILY 10/14/17 [History] [place] Aspartate [Lithate] 5 mg PO DAILY 10/14/17 [History] Tamsulosin HCl [Flomax] 0.4 mg PO DAILY 10/14/17 [History] Acetylcarnitine [Acetyl l-Carnitine] 500 mg PO DAILY 11/24/17 [History] Arginine 500 mg PO DAILY 11/24/17 [History] Ashwagandha 1,000 mg PO DAILY 11/24/17 [History] Berberine Complex Or 150 mg PO DAILY 11/24/17 [History] Iodine [Kelp] 225 mg PO DAILY 11/24/17 [History] Lysine HCl [l-Lysine] 500 mg PO DAILY 11/24/17 [History] Magnesium 125 mg PO DAILY 11/24/17 [History] [place] Extract 500 mg PO DAILY 11/24/17 [History] Acetylcysteine [Cetylev] 1 tab PO DAILY 05/11/18 [History] Cod Liver Oil 350 mg PO DAILY 05/11/18 [History] Inositol/Choline/Biofla/Vitb,C [Ear Health Plus Caplet] 250 mg PO DAILY [History] Lutein/Zeaxanthin [Lutein-Zeaxanthin 20-1 mg Sfgl] 1 each PO DAILY 05/11/18 [ History] Resveratrol 1 cap PO DAILY 05/11/18 [History] Tragacanth 1 dose PO DAILY 05/11/18 [History] Milk Thistle 500 mg PO DAILY 05/17/18 [History] Ferrous Sulfate [Iron] 325 mg PO DAILY 11/01/19 [History] Oxygen Therapy Mode: Room Air Patient Handouts: Gastrointestinal Bleeding Referrals: Florencio Trujillo NP [Nurse Practitioner] - 11/08/19 1:00 pm (Please arrive 15 minutes early to register for appointment.) - Discharge Summary/Plan Comment DC Time >30 min.: No - Patient Data Vitals - Most Recent: Last Vital Signs Temp 35.2 C L 11/02/19 10:50 Pulse 67 11/02/19 10:50 Resp 16 11/02/19 10:50 BP 104/60 11/02/19 10:50 Pulse Ox 98 11/02/19 10:50 Weight - Most Recent: 72.393 kg I&O - Last 24 hours: Intake & Output 11/01/19 11/02/19 11/02/19 22:59 06:59 14:59 Intake Total 633 600 600 Balance 633 600 600 Lab Results - Last 24 hrs: Laboratory Results - last 24 hr 11/01/19 11/02/19 Range/Units 11:01 04:18 WBC 5.0 (4.5-11.0) K/uL RBC 2.51 L (4.30-5.90) M/uL Hgb 7.4 L (12.0-15.0) g/dL Hct 24.8 L (40.0-54.0) % MCV 99 H (80-98) fL MCH 30 (27-31) pg MCHC 30 L (32-36) % Plt Count 173 (150-400) K/uL Blood Type B POSITIVE Gel Antibody Screen Negative Crossmatch See Detail Med Orders - Current: Current Medications Acetaminophen (Tylenol) 650 mg PO Q4H PRN PRN Reason: Pain (Mild 1-3)/fever Aspirin (Halfprin) 81 mg PO DAILY [facility] Last Admin: 11/02/19 10:04 Dose: 81 mg Lorazepam (Ativan) 0.5 mg IVPUSH Q4H PRN PRN Reason: Nausea/Vomiting Magnesium Hydroxide (Milk Of Magnesia) 30 ml PO Q12H PRN PRN Reason: Constipation Melatonin (Melatonin) 9 mg PO BEDTIME PRN PRN Reason: sleep Ondansetron HCl (Zofran Odt) 4 mg PO Q6H PRN PRN Reason: Nausea able to take PO Ondansetron HCl (Zofran) 4 mg IV Q6H PRN PRN Reason: Nausea/Vomiting Pantoprazole Sodium (Protonix Iv) 40 mg IV Q12H [facility] Last Admin: 11/02/19 09:53 Dose: 40 mg Senna/Docusate Sodium (Senna Plus) 1 tab PO BID PRN PRN Reason: Constipation Tamsulosin HCl (Flomax) 0.4 mg PO BEDTIME [facility] Last Admin: 11/01/19 20:37 Dose: 0.4 mg Discontinued Medications Clopidogrel Bisulfate (Plavix) 75 mg PO DAILY [facility] Last Admin: 11/02/19 10:03 Dose: 75 mg Fentanyl (Sublimaze) Confirm Administered Dose 100 mcg .ROUTE .STK-MED ONE Stop: 11/02/19 07:27 Midazolam HCl (Versed 1 Mg/Ml) Confirm Administered Dose 2 mg .ROUTE .STK-MED ONE Stop: 11/02/19 07:27 Pantoprazole Sodium (Protonix Iv) 40 mg IVPUSH ONETIME ONE Stop: 11/01/19 12:58 Last Admin: 11/01/19 13:05 Dose: 40 mg Propofol (Diprivan 20 Ml) Confirm Administered Dose 200 mg .ROUTE .STK-MED ONE Stop: 11/02/19 07:27 Tamsulosin HCl (Flomax) 0.4 mg PO DAILY TAPAN *Q Meaningful Use (DIS) - VTE *Q VTE Pharmacological Contraindications *Q: Risk of Bleeding (suspect upper gi bleed)
--- NOTE | 2019-11-03 10:14 | OR ---
DATE OF PROCEDURE: 11/02/2019 SURGEON: Nolan Mendosa MD PROCEDURE: Esophagogastroduodenoscopy. FINDINGS: Mild amount of reflux (biopsied using cold biopsy forceps). COMPLICATIONS: None. SCAGLIOLA MECHANIC: None. ANESTHESIA: MAC. PREOPERATIVE DIAGNOSIS: Anemia with a hemoglobin of 5.5. POSTOPERATIVE DIAGNOSIS: Anemia with a hemoglobin of 5.5. RISKS: Risks, benefits, alternatives, and limitations including, but not limited to infection, bleeding, and perforation were explained to the patient, who wished to proceed. PROCEDURE IN DETAIL: The patient was placed in left lateral decubitus position. Digital rectal exam was performed without abnormality. Scope was introduced and advanced atraumatically to the second part of the duodenum. No evidence of duodenitis. No ulceration. Within the stomach itself, there was no gastritis or ulceration. The GE junction showed some mild reflux consistent with reflux disease. This was biopsied multiple times using cold biopsy forceps. No other abnormalities were noted in the esophagus. The patient tolerated the procedure well. Nolan Mendosa MD /[id number]
== END 2019-11-02 13:55 | disposition home or self-care (01) ==
LOC: JP.ED 09:54 → JP.MS 12:58
PROVIDERS: ADMIT Internal Medicine; ATTEND Internal Medicine
DX: K21.0 Gastro-esophageal reflux disease with esophagitis (principal); E03.9 Hypothyroidism, unspecified; K92.2 Gastrointestinal hemorrhage, unspecified; D50.0 Iron deficiency anemia secondary to blood loss (chronic); I25.10 Atherosclerotic heart disease of native coronary artery without angina pectoris; Z95.5 Presence of coronary angioplasty implant and graft; Z79.82 Long term (current) use of aspirin; Z79.899 Other long term (current) drug therapy
CPT/HCPCS: 36415; 36430; 43239; 71046; 80053; 82607; 82728; 83550; 83605; 83880; 84484; 85025; 85027; 86850; 86900; 86901; 86920; 86922; 93005; 93010; 96374; 96376; 99217; 99218; 99284; 99285; A9270; C9113; G0378; J2250; J2704; J3010; P9016

== ENCOUNTER 2019-11-12 07:19 | Day surgery (SDC) | payer MEDICARE, BC ==
[2019-11-12] MEDS ORDERED: fentaNYL 100 MCG/2 ML SDV ONE (07:25)
[2019-11-12] MEDS ORDERED: Propofol 200 MG/20 ML SDV ONE (07:26)
[2019-11-12] MEDS ORDERED: Sodium Chloride 0.9% 1,000 ML IV SCH (08:00)
[2019-11-12 10:20] VITALS: BP 92/56; PULSE 77
--- NOTE | 2019-11-12 13:56 | OR ---
DATE OF PROCEDURE: 11/12/2019 SURGEON: Nolan Mendosa MD PROCEDURE: Colonoscopy. FINDINGS: Blood throughout the entire colon and ileocecal valve. COMPLICATION: None. NEW ACCOUNTS CLERK: None. ANESTHETIC: MAC. RISKS: Risks, benefits, alternatives, and limitations including, but not limited to infection, bleeding, and perforation were explained to the patient, who wished to proceed. PROCEDURE IN DETAIL: The patient was placed in left lateral decubitus position. Digital rectal exam was performed without abnormality. Scope was introduced and advanced atraumatically into the colon. The scope was then brought into the ileocecal valve and there was significant blood noted in the distal ileum. Scope was brought back through the entire colon and retroflexed. No evidence of other abnormalities. No polyps. No masses. The prep would be described as marginal, due to the large amount of retained blood. The patient tolerated the procedure well. Nolan Mendosa MD /[id number]
== END 2019-11-12 10:39 | disposition home or self-care (01) ==
LOC: JP.SDS 07:19
PROVIDERS: ATTEND Surgery
DX: K92.2 Gastrointestinal hemorrhage, unspecified (principal)
CPT/HCPCS: 45378; J2704; J3010; J7030

== ENCOUNTER 2020-01-15 17:38 | Emergency (ER) | payer MEDICARE, BC ==
[2020-01-15 17:49] VITALS: BP 130/49; PULSE 73
--- NOTE | 2020-01-15 18:09 | EDM.PDOC ---
ED HPI GENERAL MEDICAL PROBLEM - General Chief Complaint: General Stated Complaint: BLOOD TRANSFUSION Time Seen by Provider: 01/15/20 18:04 Source of Information: Reports: Patient History Limitations: Reports: No Limitations - History of Present Illness INITIAL COMMENTS - FREE TEXT/NARRATIVE: The patient has been dealing with dark tarry stools and upper gastrointestinal bleeding for the last 2 months. Here from clinic after Hgb 6.8 noted. The patient tells me he has had multiple endoscopies and also camera studies done of his upper GI tract. He has been evaluated both at [facility] and [facility]. Patient denies shortness of breath or chest pain. He has dyspnea on exertion, but not with every day activities. He has not noticed any recent bright red blood or black tarry stools. He has had several red blood cell transfusions but the last was 2 weeks ago Onset: Other (Chronic. Pt. has been undergoing eval for this problem.) Duration: Chronic Associated Symptoms: Reports: Shortness of Breath (Dyspnea on exertion), Weakness (Generalized). Denies: Chest Pain, Diaphoresis, Fever/Chills, Nausea/Vomiting - Related Data Allergies Allergy/AdvReac Type Severity Reaction Status Date / Time No Known Allergies Allergy Verified 11/15/19 12:25 Home Meds: Home Meds Astaxanthin 4 mg PO DAILY 09/20/13 [History] Lactobacillus Combination No.4 [Probiotic] 1 each PO DAILY 09/20/13 [History] [place]-3 Fatty Acids [[place]-3] 1,000 mg PO DAILY 09/20/13 [History] [place] Dione Extract 300 mg PO DAILY 03/16/17 [History] Cholecalciferol (Vitamin D3) [Vitamin D3] 1 tab PO DAILY 03/16/17 [History] Cyanocobalamin (Vitamin B-12) [Vitamin B-12] 7,000 mcg SL DAILY 03/16/17 [History] Multivitamin [Multivitamins] 1 cap PO DAILY 03/16/17 [History] Ubidecarenone [Co Q-10] 100 mg PO DAILY 03/16/17 [History] Vitamin B Complex [B Complex] 1 tab PO DAILY 03/16/17 [History] Vitamin E 400 units PO DAILY 03/16/17 [History] [place] Aspartate [Lithate] 5 mg PO DAILY 10/14/17 [History] Tamsulosin HCl [Flomax] 0.4 mg PO DAILY 10/14/17 [History] Acetylcarnitine [Acetyl l-Carnitine] 500 mg PO DAILY 11/24/17 [History] Arginine 500 mg PO DAILY 11/24/17 [History] Ashwagandha 1,000 mg PO DAILY 11/24/17 [History] Berberine Complex Or 150 mg PO DAILY 11/24/17 [History] Iodine [Kelp] 225 mg PO DAILY 11/24/17 [History] Lysine HCl [l-Lysine] 500 mg PO DAILY 11/24/17 [History] Magnesium 125 mg PO DAILY 11/24/17 [History] [place] Extract 500 mg PO DAILY 11/24/17 [History] Acetylcysteine [Cetylev] 1 tab PO DAILY 05/11/18 [History] Cod Liver Oil 350 mg PO DAILY 05/11/18 [History] Inositol/Choline/Biofla/Vitb,C [Ear Health Plus Caplet] 250 mg PO DAILY 05/11/18 [History] Lutein/Zeaxanthin [Lutein-Zeaxanthin 20-1 mg Sfgl] 1 each PO DAILY 05/11/18 [History] Resveratrol 1 cap PO DAILY 05/11/18 [History] Tragacanth 1 dose PO DAILY 05/11/18 [History] Milk Thistle 500 mg PO DAILY 05/17/18 [History] Ferrous Sulfate [Iron] 325 mg PO DAILY 11/01/19 [History] Nitroglycerin [Nitrostat] 0.4 mg SL ASDIRECTED 01/15/20 [History] Pantoprazole [ProTONIX] 40 mg PO BID 01/15/20 [History] traZODone HCl [Trazodone HCl] 50 mg PO BEDTIME PRN 01/15/20 [History] Past Medical History HEENT History: Reports: Cataract, Hard of Hearing, Impaired Vision Cardiovascular History: Reports: Afib, Heart Murmur, Stents, Other (See Below) Other Cardiovascular History: history of rheumatic fever Respiratory History: Reports: Sleep Apnea Gastrointestinal History: Reports: GERD Genitourinary History: Reports: Prostate Disorder Musculoskeletal History: Reports: Fracture Endocrine/Metabolic History: Reports: Hypothyroidism Hematologic History: Reports: Anemia, Anticoagulation Therapy, Blood Transfusion(s) - Infectious Disease History Infectious Disease History: Reports: Chicken Pox, Measles, Mumps, Rheumatic Fever, Shingles - Past Surgical History Head Surgeries/Procedures: Reports: None HEENT Surgical History: Reports: None Cardiovascular Surgical History: Reports: Cardiac Ablation, Coronary Artery Stent Respiratory Surgical History: Reports: None GI Surgical History: Reports: Appendectomy, Colonoscopy, EGD, Hernia, Abdominal Male Surgical History: Reports: Prostate Biopsy Endocrine Surgical History: Reports: None Musculoskeletal Surgical History: Reports: None Social & Family History - Family History Family Medical History: Noncontributory GI: Reports: GERD - Caffeine Use Caffeine Use: Reports: Soda, Tea ED ROS GENERAL - Review of Systems Review Of Systems: See Below Constitutional: Reports: Weakness. Denies: Fever HEENT: Reports: No Symptoms Respiratory: Reports: Shortness of Breath (On exertion) Cardiovascular: Denies: Chest Pain, Lightheadedness, Palpitations Endocrine: Reports: Fatigue GI/Abdominal: Denies: Abdominal Pain, Black Stool, Bloody Stool, Hematemesis, Hematochezia, Nausea, Vomiting Skin: Reports: No Symptoms Neurological: Reports: No Symptoms ED EXAM, GENERAL - Physical Exam Exam: See Below Exam Limited By: No Limitations General Appearance: Alert, WD/WN, No Apparent Distress Nose: Normal Inspection Throat/Mouth: Normal Inspection Head: Atraumatic Neck: Normal Inspection, Supple Respiratory/Chest: No Respiratory Distress, Lungs Clear Cardiovascular: Normal Peripheral Pulses, Regular Rate, Rhythm, No Edema GI/Abdominal: Normal Bowel Sounds, Soft (Male) Exam: No Hernia Extremities: Normal Inspection, Normal Range of Motion Neurological: Alert, Oriented Course - Vital Signs Text/Narrative:: 1839: I discussed the patient with Dr. Valentin, on-call asset management lead at [facility]. He stated the patient has chronic occult blood loss in the next procedure that needs to be done is an enteroscopy. This needs to be done at [facility]. We will make arrangements for the patient to be transfused this evening or tomorrow. At 1857 I discussed the patient with the phone referral nurse from the [facility] in [place]. The patient has been in contact with his asset management lead, Dr. Carrero, and been communicating all lab results that way. She is recommended the patient continue to can communicate today's lab results to Dr. Carrero. We will make arrangements for follow-up. Last Recorded V/S: Last Vital Signs Temp 36.4 C 01/15/20 17:52 Pulse 73 01/15/20 17:52 Resp 12 01/15/20 17:52 BP 130/49 L 01/15/20 17:52 Pulse Ox 98 01/15/20 17:52 Departure - Departure Time of Disposition: 19:03 Disposition: Home, Self-Care 01 Clinical Impression: Anemia Qualifiers: Anemia type: unspecified type Qualified Code(s): D64.9 - Anemia, unspecified - Discharge Information Instructions: Anemia Referrals: Florencio Trujillo [employer] [Primary Care Provider] - Forms: ED Department Discharge Additional Instructions: Home to rest. Our outpatient department will call you tomorrow regarding blood transfusion. Please communicate today's lab results to Dr. Carrero via your [facility] chart, the way you have done in the past. They will make arrangements for follow-up. Sepsis Event Note (ED) - Evaluation Sepsis Screening Result: No Definite Risk - Focused Exam Vital Signs: Vital Signs Temp Pulse Resp BP Pulse Ox 01/15/20 17:52 36.4 C 73 12 130/49 L 98 01/15/20 17:47 36.4 C 73 12 130/49 L 98
== END 2020-01-15 19:16 | disposition home or self-care (01) ==
LOC: JP.ED 17:38
DX: D64.9 Anemia, unspecified (principal); I48.91 Unspecified atrial fibrillation; K21.9 Gastro-esophageal reflux disease without esophagitis; Z79.01 Long term (current) use of anticoagulants; Z79.899 Other long term (current) drug therapy
CPT/HCPCS: 99283

== ENCOUNTER 2021-11-15 07:44 | Emergency (ER) | payer MEDICARE, BC ==
[2021-11-15 08:09] VITALS: BP 115/55; PULSE 75
== END 2021-11-15 08:57 | disposition home or self-care (01) ==
LOC: JP.ED 07:44
DX: S30.861A Insect bite (nonvenomous) of abdominal wall, initial encounter (principal); A69.20 Lyme disease, unspecified; I48.91 Unspecified atrial fibrillation; K21.9 Gastro-esophageal reflux disease without esophagitis; E03.9 Hypothyroidism, unspecified; Z79.899 Other long term (current) drug therapy; W57.XXXA Bitten or stung by nonvenomous insect and other nonvenomous arthropods, initial encounter
CPT/HCPCS: 99281; 99283

== ENCOUNTER 2022-01-11 11:36 | Emergency (ER) | payer MEDICARE, BC ==
[2022-01-11 14:04] LABS: ESTIMATED GFR 94 mL/min (>60)
[2022-01-11] MEDS ORDERED: cefTRIAXone 1 GM Vial IM ONE (15:47)
[2022-01-11 15:52] VITALS: BP 119/60; PULSE 70
[2022-01-11] MEDS ORDERED: Lidocaine 1% 5 ML VIAL ONE (15:52)
== END 2022-01-11 16:25 | disposition home or self-care (01) ==
LOC: JP.ED 11:36
DX: N30.01 Acute cystitis with hematuria (principal); I48.91 Unspecified atrial fibrillation; E03.9 Hypothyroidism, unspecified; K21.9 Gastro-esophageal reflux disease without esophagitis; Z79.899 Other long term (current) drug therapy
CPT/HCPCS: 36415; 36600; 80053; 81001; 82803; 83605; 84484; 85025; 87086; 96372; 99284; J0696

== ENCOUNTER 2023-09-12 09:01 | Emergency (ER) | payer MEDICARE, BC ==
[2023-09-12 09:22] VITALS: BP 133/68; PULSE 96
== END 2023-09-12 10:10 | disposition home or self-care (01) ==
LOC: JP.ED 09:01
DX: J01.00 Acute maxillary sinusitis, unspecified (principal); Z90.49 Acquired absence of other specified parts of digestive tract; Z79.899 Other long term (current) drug therapy
CPT/HCPCS: 99283

== ENCOUNTER 2023-10-16 10:50 | Emergency (ER) | payer MEDICARE, BC ==
[2023-10-16 11:02] VITALS: BP 148/71; PULSE 89
[2023-10-16 12:59] LABS: A/G RATIO 0.6 (1.2-2.2); ALANINE AMINOTRANSFERASE,ALT 19 U/L (12-78); ALBUMIN 2.7 g/dL (3.4-5.0); ALKALINE PHOSPHATASE 160 U/L (46-116); ASPARTATE AMNIOTRANSFERASE,AST 20 U/L (15-37); BILIRUBIN TOTAL 1.3 mg/dL (0.2-1.0); BLOOD UREA NITROGEN,BUN 14 mg/dL (7-18); CALCIUM 8.5 mg/dL (8.5-10.1); CARBON DIOXIDE,CO2 24 mmol/L (21-32); CHLORIDE,CL 100 mmol/L (100-108); CREATININE 0.8 mg/dL (0.8-1.3); EST CRCL DRUG DOSING (CG) 72.02 mL/min; ESTIMATED GFR 89 mL/min (>60); GLUCOSE RANDOM 99 mg/dL (74-106); HEMOGLOBIN 9.5 g/dL (12.9-16.9); MAGNESIUM 1.9 mg/dL (1.8-2.4); PLATELET COUNT,PLT 533 K/uL (130-375); POTASSIUM,K 4.2 mmol/L (3.6-5.2); PROTEIN TOTAL,TP 7.4 g/dL (6.4-8.2); SODIUM,NA 135 mmol/L (140-148); TROPONIN I HIGH SENSITIVITY 11.3 pg/mL (<=60.3); WHITE BLOOD CELL COUNT,WBC 11.4 K/uL (3.2-11.0)
[2023-10-16 13:00] LABS: ANION GAP 15.2 mmol/L (5.0-14.0)
[2023-10-16 13:05] LABS: LYMPHOCYTES PERCENT MAN 36 % (24-44); METAMYELOCYTE ABSOLUTE MAN 0.46 K/uL; METAMYELOCYTE PERCENT MAN 4 %; MONOCYTES ABSOLUTE MAN 1.71 K/uL (0.20-0.90); MONOCYTES PERCENT MAN 15 % (2-6); NEUTROPHILS ABSOLUTE MAN 5.13 K/uL (1.0-7.6); SEG NEUTROPHILS PERCENT MAN 45 % (36-66)
[2023-10-16] MEDS: Sodium Chloride 0.9% 100 ML IV SCH (14:40)
[2023-10-16] MEDS: Sodium Chloride 0.9% 10 ML Syringe FLUSH PRN (14:40)
[2023-10-16] MEDS: Iopamidol 755 Mg/ML 100 ML Bottle IV SCH (14:40)
== END 2023-10-16 15:54 | disposition home or self-care (01) ==
LOC: JP.ED 10:50
DX: J90 Pleural effusion, not elsewhere classified (principal); D64.9 Anemia, unspecified; R53.83 Other fatigue; D75.839 Thrombocytosis, unspecified; Z79.899 Other long term (current) drug therapy; Z86.19 Personal history of other infectious and parasitic diseases
CPT/HCPCS: 36415; 71046; 71275; 80053; 83735; 84484; 85025; 85379; 93005; 99284; J3490; Q9967